=== PATIENT | female | born 1970 | race Caucasian/White ===

== ENCOUNTER 2016-09-28 03:07 | Emergency (ER) | payer MEDICARE ==
[~2016-09-28] VITALS: Ht 162.6 cm; Wt 68.0 kg
[~2016-09-28 03:07] MED LIST: BACL-19 PO; BUSP10TA PO; GABA-826 PO; LORA0.5T PO; LORA1TAB PO; OXYC-302 PO; OXYC5CAP4 PO; PRAZ2CAP2 PO; SERT50TA PO; TOPI100T24 PO; TOPI50TA77 PO; ZOLP10TA PO
[2016-09-28] MEDS ORDERED: ONDANSETRON ODT 4 MG PO ONE (04:00)
[2016-09-28] MEDS ORDERED: PHENAZOPYRIDINE 200 MG TABLET PO ONE (04:00)
[2016-09-28] MEDS ORDERED: IBUPROFEN 200 MG TABLET PO ONE (04:00)
[2016-09-28] MEDS ORDERED: ONDANSETRON ODT 4 MG ONE (04:04)
[2016-09-28] MEDS ORDERED: PHENAZOPYRIDINE 200 MG TABLET ONE (04:04)
[2016-09-28] MEDS ORDERED: IBUPROFEN 200 MG TABLET ONE (04:04)
[2016-09-28 04:22] LABS: BLOOD UREA NITROGEN 12 mg/dL (7-18); HEMATOCRIT 45.2 % (34.6-47.8)
[2016-09-28 05:01] VITALS: BP 121/76
== END 2016-09-28 05:04 | disposition home or self-care (01) ==
LOC: ED 04:58
DX: N30.00 Acute cystitis without hematuria (principal); Z88.0 Allergy status to penicillin; Z98.51 Tubal ligation status; F17.200 Nicotine dependence, unspecified, uncomplicated
CPT/HCPCS: 36415; 80048; 81001; 82040; 84703; 85025; 87086; 99284; Q0162

== ENCOUNTER 2017-03-15 09:30 | Emergency (ER) | payer MEDICARE ==
[~2017-03-15] VITALS: Ht 162.6 cm; Wt 67.0 kg
[2017-03-15 09:30] VITALS: BP 124/58
[~2017-03-15 09:30] MED LIST changes: +OXYC5CAP2 PO; -OXYC5CAP4 PO; -TOPI50TA77 PO; +TOPI50TA8 PO
[2017-03-15 09:57] LABS: BASOPHILS # (AUTO) 0.05 x10^3/uL (0-0.1); BASOPHILS % (AUTO) 1 % (0-1); EOSINOPHILS # (AUTO) 0.05 x10^3/uL (0-0.4); EOSINOPHILS % (AUTO) 1 % (1-7); LYMPHOCYTES # (AUTO) 1.82 x10^3/uL (1-3.4); LYMPHOCYTES % (AUTO) 17 % (22-44); MD NO; MEAN CORPUSCULAR HEMOGLOBIN 30.1 pg (27.0-34.8); MEAN CORPUSCULAR HGB CONC 33.7 g/dL (32.4-35.8); MEAN CORPUSCULAR VOLUME 89.4 fL (80-100); MEAN PLATELET VOLUME 8.6 fL (7.4-10.4); MONOCYTES # (AUTO) 0.35 x10^3/uL (0.2-0.8); MONOCYTES % (AUTO) 3 % (2-9); NEUTROPHILS # (AUTO) 8.63 x10^3/uL (1.8-6.8); NEUTROPHILS % (AUTO) 79 % (42-75); PLATELET COUNT 280 x10^3/uL (130-400); RED BLOOD COUNT 5.25 x10^6/uL (3.82-5.3)
[2017-03-15 10:08] LABS: ALANINE AMINOTRANSFERASE 17 U/L (12-78); ANION GAP 10 mmol/L (5-15); CALCIUM 9.4 mg/dL (8.5-10.1); CHLORIDE 114 mmol/L (98-107); CREATININE 0.77 mg/dL (0.55-1.02)
[2017-03-15 10:11] LABS: ALKALINE PHOSPHATASE 136 U/L (45-117); BILIRUBIN,TOTAL 0.6 mg/dL (0.2-1.0); SALICYLATE LEVEL 3.4 mg/dL (2.8-20.0); TOTAL PROTEIN 8.1 g/dL (6.4-8.2)
[2017-03-15 10:25] LABS: ACETAMINOPHEN < 2 mcg/mL (10-30)
[2017-03-15 10:38] LABS: AMPHETAMINE SCREEN, URINE Negative (Negative); BARBITURATE SCREEN, URINE Negative (Negative); BENZODIAZEPINE SCREEN, URINE Negative (Negative); CANNABINOID SCREEN, URINE Negative (Negative); COCAINE SCREEN, URINE Negative (Negative); METHADONE SCREEN, URINE Negative (Negative); OPIATE SCREEN, URINE Positive (Negative)
[2017-03-15] MEDS ORDERED: LORazepam 2 MG/ML, 1ML ONE (11:03)
[2017-03-15] MEDS ORDERED: MAALOX/HYOSCYAMINE/LIDOCAINE 45 ML BTL ONE (11:03)
[2017-03-15] MEDS ORDERED: LORazepam 2 MG/ML, 1ML IM ONE (11:30)
[2017-03-15] MEDS ORDERED: MAALOX/HYOSCYAMINE/LIDOCAINE 45 ML BTL PO ONE (11:30)
== END 2017-03-15 13:01 | disposition home or self-care (01) ==
LOC: ED 10:08
DX: F32.0 Major depressive disorder, single episode, mild (principal); F11.10 Opioid abuse, uncomplicated
CPT/HCPCS: 36415; 80053; 80307; 80329; 85025; 96372; 99284; J2060; G0480

== ENCOUNTER 2017-05-12 13:50 | Emergency (ER) | payer MEDICARE ==
[~2017-05-12] VITALS: Ht 162.6 cm; Wt 74.2 kg
[2017-05-12 13:54] VITALS: BP 133/89
[2017-05-12] MEDS ORDERED: MIRT15TA4 PO (14:31)
[2017-05-12] MEDS ORDERED: SILVER SULF. CRM 1% , 25GM ONE (14:56)
[2017-05-12] MEDS ORDERED: SILVER SULF. CRM 1% , 25GM TP ONE (15:00)
== END 2017-05-12 16:24 | disposition home or self-care (01) ==
LOC: ED 15:06
DX: T20.26XA Burn of second degree of forehead and cheek, initial encounter (principal); T20.212A Burn of second degree of left ear [any part, except ear drum], initial encounter; F43.10 Post-traumatic stress disorder, unspecified; Z98.51 Tubal ligation status; X19.XXXA Contact with other heat and hot substances, initial encounter; Y93.89 Activity, other specified; Y92.89 Other specified places as the place of occurrence of the external cause; Y99.8 Other external cause status
CPT/HCPCS: 16000; 99284